=== PATIENT | male | born 1975 | race Caucasian/White ===

== ENCOUNTER → 2016-08-23 | Outpatient (CLI) | payer BC, OTHER ==
[~2016-08-23] MED LIST: /ONDA4TA OR; CIPR500T4 OR; COLA100C2 OR; COQ 10 PO; FERR325T OR; FISH1000 PO; FLAG500T OR; MULTIVIT PO; OXYC10TA56 OR; OXYC5CAP4 OR; SENNSYP PO; ST JOHN'S WART PO
--- NOTE | 2016-08-23 14:57 | REP ---
Clinical: Anxiety disorder . Comparison: None . Technique: PA and lateral. Findings: The mediastinum and cardiac silhouette are normal. The lung dai are clear and without acute consolidation, effusion, or pneumothorax. The skeletal structures are intact and normal. Impression: 1. No acute cardiopulmonary process. Signed by Piotr Naik MD 08/23/2016 02:49 P
--- NOTE | 2016-08-23 15:19 | ECGEPIP ---
Stationary ECG Study [facility] Test Date: 2016-08-23 Pat Name: STAN HOBSON Department: Room: - Gender: M [employer]: TAL : 1975 Requested By: Haylee Bender Order Number: [id number] Reading MD: Umang Ray Measurements Intervals [place] Rate: 64 P: -85 MD: 149 QRS: 41 QRSD: 102 T: 38 QT: 393 QTc: 408 Interpretive Statements ECTOPIC ATRIAL RHYTHM Versus junctional rhythm. ABNORMAL RHYTHM ECG No prior ECG available for comparison at the time of interpretation. Electronically Signed On 08-23-2016 15:19:28 EDT by Umang Ray
== END ==
LOC: M RAD 14:08
PROVIDERS: ATTEND Family Medicine
DX: Z00.00 Encounter for general adult medical examination without abnormal findings (principal); F41.9 Anxiety disorder, unspecified; R07.9 Chest pain, unspecified; R10.13 Epigastric pain; E78.4 Other hyperlipidemia; R11.0 Nausea

== ENCOUNTER → 2016-08-23 | Outpatient (CLI) | payer BC, OTHER ==
[2016-08-23 19:54] LABS: BASO # 0.1 K/mm3 (0.0-0.2); BASO % 0.9 % (0.0-1.0); EOS # 0.1 K/mm3 (0.0-0.50); EOS % 1.9 % (0.0-3.0); LYMPH # 2.7 K/mm3 (1.5-4.5); LYMPH % 40.9 % (24.0-44.0); MEAN CORPUSCULAR HEMOGLOBIN 30.1 pg (27.0-33.0); MEAN CORPUSCULAR HGB CONC 32.7 g/dl (32.0-36.5); MEAN CORPUSCULAR VOLUME 91.9 fl (80.0-96.0); MONO # 0.4 K/mm3 (0.0-0.8); MONO % 7.1 % (0.0-5.0); NEUTROPHILS # 2.7 K/mm3 (1.8-7.7); NEUTROPHILS % 45.6 % (36.0-66.0); RED CELL DISTRIBUTION WIDTH 12.5 % (11.5-14.5)
[2016-08-23 20:15] LABS: ANION GAP 8 MEQ/L (8-16); BLOOD UREA NITROGEN 20 MG/DL (7-18); CALCIUM LEVEL 8.7 MG/DL (8.5-10.1); CARBON DIOXIDE LEVEL 27 MEQ/L (21-32); CHLORIDE LEVEL 105 MEQ/L (98-107); CHOLESTEROL LEVEL 266 MG/DL (<200); CREATININE FOR GFR 0.75 MG/DL (0.70-1.30); GLOMERULAR FILTRATION RATE > 60.0 (>60); GLUCOSE, FASTING 99 MG/DL (70-105); POTASSIUM SERUM 4.7 MEQ/L (3.5-5.1); SODIUM LEVEL 140 MEQ/L (136-145); TRIGLYCERIDES LEVEL 217 MG/DL (<150)
== END ==
LOC: M WUC 10:39
PROVIDERS: ATTEND Family Medicine
DX: Z00.00 Encounter for general adult medical examination without abnormal findings (principal); R10.13 Epigastric pain; F41.9 Anxiety disorder, unspecified; E78.4 Other hyperlipidemia; R11.0 Nausea

== ENCOUNTER → 2016-11-22 | Outpatient (CLI) | payer BC, OTHER ==
[2016-11-22 18:57] LABS: ALBUMIN 4.2 GM/DL (3.2-5.2); ALBUMIN/GLOBULIN RATIO 1.31 (1.00-1.93); BILIRUBIN,DIRECT 0.1 MG/DL (0.0-0.2); BILIRUBIN,TOTAL 0.6 MG/DL (0.2-1.0); TOTAL PROTEIN 7.4 GM/DL (6.4-8.2)
== END ==
LOC: M WUC 10:36
PROVIDERS: ATTEND Family Medicine
DX: E78.4 Other hyperlipidemia (principal)

== ENCOUNTER → 2022-01-06 | Outpatient (REF) ==
[~2022-01-06] MED LIST changes: -/ONDA4TA OR; +ONDA-1 OR
== END ==
LOC: M LAB 22:05